=== PATIENT | female | born 1970 | race Caucasian/White ===

== ENCOUNTER 2017-07-05 07:24 | Day surgery (SDC) | payer OTHER, SELFPAY ==
[2017-07-05] VITALS (7 sets, daily range): BP systolic 96–114; BP diastolic 58–79; PULSE 62–81; RESP 16–18; TEMP 36.1–36.3; O2SAT 96–100; BMI 27.8
--- NOTE | 2017-07-05 08:30 | RAD_ITS ---
PROCEDURE: Caudal block. DATE OF EXAMINATION: July 05, 2017. INDICATION: Female, 46 years old. Chronic low back pain. FLUOROSCOPY TIME (if supplied): (0:06) minutes/seconds Intraoperative imaging provided for caudal block. RAD/Fluor Guidance for Spine Inj IMPRESSION: Intraoperative imaging provided for caudal block. Electronically Signed: Rosas Galarza MD at 10:04 EDT Tel [phone], Service support ,
[2017-07-05] MEDS: MethylPREDNISolone Acetate 80 MG/ML Vial (08:51)
[2017-07-05] MEDS: 0.9% Saline Lock 10 ML Syringe IV (08:51)
[2017-07-05] MEDS: Bupivacaine 0.25% 30 ML Vial (08:51)
--- NOTE | 2017-07-05 15:44 | PCM.OPRPT ---
Problem List (1) Radiculopathy of lumbosacral region Status: Chronic (2) Degeneration of lumbar or lumbosacral intervertebral disc Status: Chronic Report of Operation Date of Procedure: 07/05/17 Pre-Operative Diagnosis: Lumbosacral radiculopathy, lumbosacral degenerative disc disease Post-Operative Diagnosis: Lumbosacral radiculopathy, lumbosacral degenerative disc disease Surgery/Procedure Performed:: Caudal epidural steroid injection Description of Surgical Findings:: Procedure: Caudal epidural steroid injection Preoperative diagnosis: Lumbosacral radiculopathy, lumbosacral degenerative disc disease, lumbosacral spinal stenosis Postoperative diagnosis:Lumbosacral radiculopathy, lumbosacral degenerative disc disease, lumbosacral spinal stenosis Anesthesia: MAC Blood loss: Minimal Complications: None Procedure in detail: History and physical today was reviewed risk and benefits of procedure explained the patient understood and agreed to procedure informed consent was obtained IV inserted per routine protocol patient was taken to the operating room placed in the prone position with a pillow position underneath the abdomen the lower back and tailbone area was prepped and draped in a sterile fashion using iodine ?3 under direct visualization with fluoroscopy on the lateral view the caudal space was identified skin and subcutaneous tissue anesthetized approximately 3 cc of 1% lidocaine using a 25-gauge regular needle under direct visualization fluoroscopy on the lateral view using a 22-gauge 3-1/2 inch spinal needle the needle was advanced via the skin through the sacral hiatus tip of needle passed through the sacrococcygeal ligament advanced approximately S4 area after negative aspiration for blood or CSF a total of 3 cc of contrast were injected to confirm correct placement of the needle as well as cephalad spread the spread was followed to approximately L5 area after repeated confirmation AP as well as lateral view and repeated negative aspiration a total of 15 cc of preservative-free 0.125% Marcaine with 80 mg of Depo-Medrol were injected easily the needle was then removed intact patient experienced no sinus symptoms intrathecal or intravascular injection patient experienced no paresthesia the procedure was completed without any apparent difficulty any complication the patient appeared to tolerate well. Assessment and plan: This is a 46-year-old female with lumbosacral radiculopathy lumbosacral degenerative disc disease lumbosacral spinal stenosis status post caudal epidural steroid injection patient will continue her current medications patient will follow approximately 2 weeks for possible repeat of the procedure if indicated.
== END 2017-07-05 09:40 | disposition home or self-care (01) ==
LOC: SDC 07:26 → AC 07:26
PROVIDERS: Family Provider Nurse Practitioner Family; PCP Nurse Practitioner Family; Visit Provider Anesthesiology Pain Medicine
PROC: 3E0S3BZ Introduction of Anesthetic Agent into Epidural Space, Percutaneous Approach (ICD-10-PCS; CPT 62282; principal; 2017-07-05 08:25)
DX: M51.17 Intervertebral disc disorders with radiculopathy, lumbosacral region (principal); M47.27 Other spondylosis with radiculopathy, lumbosacral region; M48.07 Spinal stenosis, lumbosacral region; M79.7 Fibromyalgia; K21.9 Gastro-esophageal reflux disease without esophagitis; D64.9 Anemia, unspecified; F17.200 Nicotine dependence, unspecified, uncomplicated; Z79.891 Long term (current) use of opiate analgesic; Z79.899 Other long term (current) drug therapy
CPT/HCPCS: 62323; 64520 ×5; 64483; 77003; J7120; A4216

== ENCOUNTER 2018-02-21 08:37 | Day surgery (SDC) | payer OTHER, SELFPAY ==
[2018-02-21] VITALS (9 sets, daily range): BP systolic 87–113; BP diastolic 60–78; PULSE 62–72; RESP 14–18; TEMP 36.4–37; O2SAT 98–100; BMI 26.2
--- NOTE | 2018-02-21 10:15 | RAD_ITS ---
PROCEDURE: Caudal block. DATE OF EXAMINATION: February 21, 2018. INDICATION: Female, 47 years old. Chronic low back pain. FLUOROSCOPY TIME (if supplied): (0:14) minutes/seconds. 3 intraoperative views were obtained. Intraoperative imaging provided for caudal block. The spinal needle is seen along the posterior midportion of the sacrum. RAD/Fluor Guidance for Spine Inj IMPRESSION: Intraoperative fluoroscopic services provided for caudal block. Electronically Signed: Rosas Galarza MD at 8:54 EST Tel [phone], Service support ,
[2018-02-21] MEDS: MethylPREDNISolone Acetate 80 MG/ML Vial (10:24)
[2018-02-21] MEDS: Bupivacaine 0.25% 30 ML Vial (10:25)
--- NOTE | 2018-02-21 10:34 | OP.PCM_ITS ---
Problem List (1) Degeneration of lumbar or lumbosacral intervertebral disc Status: Chronic (2) Radiculopathy of lumbosacral region Status: Chronic Report of Operation Date of Procedure: 02/21/18 Pre-Operative Diagnosis: Lumbosacral radiculopathy, lumbosacral degenerative disc disease, lumbosacral spinal stenosis Post-Operative Diagnosis: Lumbosacral radiculopathy, lumbosacral degenerative disc disease, lumbosacral spinal stenosis Surgery/Procedure Performed:: Caudal epidural steroid injection Description of Surgical Findings:: Procedure: Caudal epidural steroid injection Preoperative diagnosis: Lumbosacral radiculopathy, lumbosacral degenerative disc disease, lumbosacral spinal stenosis Postoperative diagnosis:Lumbosacral radiculopathy, lumbosacral degenerative disc disease, lumbosacral spinal stenosis Anesthesia: MAC Blood loss: Minimal Complications: None Procedure in detail: History and physical today was reviewed risk and benefits of procedure explained the patient understood and agreed to procedure informed consent was obtained IV inserted per routine protocol patient was taken to the operating room placed in the prone position with a pillow position underneath the abdomen the lower back and tailbone area was prepped and draped in a sterile fashion using iodine ?3 under direct visualization with fluoroscopy on the lateral view the caudal space was identified skin and subcutaneous tissue anesthetized approximately 3 cc of 1% lidocaine using a 25-gauge regular needle under direct visualization fluoroscopy on the lateral view using a 22-gauge 3-1/2 inch spinal needle the needle was advanced via the skin through the sacral hiatus tip of needle passed through the sacrococcygeal ligament advanced approximately S4 area after negative aspiration for blood or CSF a total of 3 cc of contrast were injected to confirm correct placement of the needle as well as cephalad spread the spread was followed to approximately L5 area after repeated confirmation AP as well as lateral view and repeated negative aspiration a total of 15 cc of preservative- free 0.125% Marcaine with 80 mg of Depo-Medrol were injected easily the needle was then removed intact patient experienced no signs or symptoms intrathecal or intravascular injection patient experienced no paresthesia the procedure was completed without any apparent difficulty any complication the patient appeared to tolerate well. Assessment and plan: This is a 47-year-old female with lumbosacral radiculopathy lumbosacral degenerative disc disease lumbosacral spinal stenosis status post caudal epidural steroid injection patient will continue her current medications patient will follow approximately 2 weeks for possible repeat of the procedure if i ndicated.
--- OUTSIDE RECORDS SUMMARY | 2018-04-16 09:19 | XMS RPT_ITS ---
:1970 Author Organization OHIP Support Name Relationship Address Phone HOWARD AMBROSE Unavailable [id number] + [place] [address] [facility] Unavailable [address] + [facility] [place] [address] S Unavailable Unavailable Unavailable HOWARD AMBROSE Unavailable [address] Unavailable [place], [place] [id number] NOT GIVEN Unavailable Unavailable Unavailable YENI, RICKEY Unavailable [address] + [place] [address] HOWARD AMBROSE Unavailable [address] + [place] [address] [facility] Unavailable [address] + [facility] [place] [address] S Unavailable Unavailable Unavailable HOWARD AMBROSE Unavailable [address] + [place] [address] [facility] Unavailable [address] + [facility] [place] [address] S Unavailable Unavailable Unavailable HOWARD AMBROSE Unavailable [address] + [place] [address] [facility], LUISA Unavailable [address] + [place] [address] S Unavailable Unavailable Unavailable HOWARD AMBROSE Unavailable [address] Unavailable [place] [phone] NOT GIVEN Unavailable Unavailable Unavailable YENI, RICKEY Unavailable [address] + [place] [address] Care Team Providers Name Role Phone CAIT PEARCE Admitting Unavailable CAIT PEARCE Attending Unavailable CAIT PEARCE Primary Care Unavailable MINDY MENDEZ Consulting Unavailable PROVIDER, UNKNOWN Consulting Unavailable TIMBO ART Admitting Unavailable TIMBO ART Attending Unavailable TIMBO ART Primary Care Unavailable VANESSA, MINDY Consulting Unavailable VANESSA, MNIDY Referring Unavailable PROVIDER, UNKNOWN Consulting Unavailable Kemar, Juan Carlos Attending Unavailable Kemar, Juan Carlos Referring Unavailable Vanessa, Mnidy LIFE SKILLS TEACHER-C Primary Care Unavailable Kemar, Juan Carlos Attending Unavailable Kemar, Juan Carlos Referring Unavailable Vanessa, Mindy LIFE SKILLS TEACHER-C Primary Care Unavailable Kemar, Juan Carlos Attending Unavailable Kemar, Juan Carlos Referring Unavailable Vanessa, Mindy LIFE SKILLS TEACHER-C Primary Care Unavailable Kemar, Juan Carlos Attending Unavailable Vanessa, Mindy LIFE SKILLS TEACHER-C Primary Care Unavailable Kemar, Juan Carlos Referring Unavailable PROBLEMS PROBLEMS DATE TYPE CONDITION / CODE ATTENDING STATUS SOURCE 04/20/2017 Principle Soft tissue CAIT PEARCE Active Jaison Clay Diagnosis disorder, T [facility] unspecified / Hospital M799(ICD-10) Repository PROCEDURES PROCEDURES No Procedure Records FoundRESULTS RESULTS OPERATIVE REPORT Observed: 02/21/2018 Status: F Source: [place] 10:34 AM [facility] Medical Records Department [address] [place] [address] Operative Report 02/21/18 1031 MR#: [id number] Acct: [id number] Name: CHASE AMBROSE Rep #: [id number] : 1970 47 From: Juan Carlos Reinoso MD PCP: JEANETTE Grimes Status: REG [facility] Y Location: [place] [address] Problem List (1) Degeneration of lumbar or lumbosacral intervertebral disc Status: Chronic (2) Radiculopathy of lumbosacral region Status: Chronic Report of Operation Date of Procedure: 02/21/18 Pre-Operative Diagnosis: Lumbosacral radiculopathy, lumbosacral degenerative disc disease, lumbosacral spinal stenosis Post-Operative Diagnosis: Lumbosacral radiculopathy, lumbosacral degenerative disc disease, lumbosacral spinal stenosis Surgery/Procedure Performed:: Caudal epidural steroid injection Description of Surgical Findings:: Procedure: Caudal epidural steroid injection Preoperative diagnosis: Lumbosacral radiculopathy, lumbosacral degenerative disc disease, lumbosacral spinal stenosis Postoperative diagnosis:Lumbosacral radiculopathy, lumbosacral degenerative disc disease, lumbosacral spinal stenosis Anesthesia: MAC Blood loss: Minimal Complications: None Procedure in detail: History and physical today was reviewed risk and benefits of procedure explained the patient understood and agreed to procedure informed consent was obtained IV inserted per routine protocol patient was taken to the operating room placed in the prone position with a pillow position underneath the abdomen the lower back and tailbone area was prepped and draped in a sterile fashion using iodine 3 under direct visualization with fluoroscopy on the lateral view the caudal space was identified skin and subcutaneous tissue anesthetized approximately 3 cc of 1% lidocaine using a 25-gauge regular needle under direct visualization fluoroscopy on the lateral view using a 22-gauge 3-1/2 inch spinal needle the needle was advanced via the skin through the sacral hiatus tip of needle passed through the sacrococcygeal ligament advanced approximately S4 area after negative aspiration for blood or CSF a total of 3 cc of contrast were injected to confirm correct placement of the needle as well as cephalad spread the spread was followed to approximately L5 area after repeated confirmation AP as well as lateral view and repeated negative aspiration a total of 15 cc of preservative- free 0.125% Marcaine with 80 mg of Depo-Medrol were injected easily the needle was then removed intact patient experienced no signs or symptoms intrathecal or intravascular injection patient experienced no paresthesia the procedure was completed without any apparent difficulty any complication the patient appeared to tolerate well. Assessment and plan: This is a 47-year-old female with lumbosacral radiculopathy lumbosacral degenerative disc disease lumbosacral spinal stenosis status post caudal epidural steroid injection patient will continue her current medications patient will follow approximately 2 weeks for possible repeat of the procedure if indicated. 02/21/18 1034 <Electronically signed by Juan Carlos Reinoso MD> Date Juan Carlos Reinoso MD CC: JEANETTE Mendez; Juan Carlos Reinoso Signed FLUOR GUIDANCE FOR Observed: 02/21/2018 Status: F Source: [facility] SPINE INJ 3:27 AM [facility] Imaging Services [address] [place] [address] Fluor Guidance for Spine Inj MR#: [id number] Acct: [id number] Name: CHASE AMBROSE Rep #: [id number] : 1970 F 47 From: Rosas Galarza MD PCP: JEANETTE Grimes Status: [facility] Study: Fluor Guidance for Spine Inj Date of Exam: 02/21/18 Exam# [id number] Ordering Dr: Juan Carlos Reinoso MD PROCEDURE: Caudal block. DATE OF EXAMINATION: February 21, 2018. INDICATION: Female, 47 years old. Chronic low back pain. FLUOROSCOPY TIME (if supplied): (0:14) minutes/seconds. 3 intraoperative views were obtained. Intraoperative imaging provided for caudal block. The spinal needle is seen along the posterior midportion of the sacrum. RAD/Fluor Guidance for Spine Inj IMPRESSION: Intraoperative fluoroscopic services provided for caudal block. Electronically Signed: Rosas Galarza MD at 8:54 EST Tel [phone], Service support , CC: JEANETTE Mendez; Juan Carlos Reinoso Front End Ui Developer: Signed URINALYSIS Collected: 01/05/2018 Status: F Source: JAISON CLAY 1:15 AM [facility] REPOS[facility] TYPE CODE TESTS RESULT OUT OF REFERENCE UNITS RANGE LAB URINALYSIS (LOINC) URINALYSIS Result Comment: URINALYSIS LAB Specimen Type(LOINC) Specimen Type UNSPECIFIED LAB Color(LOINC) NORMAL: YELLOW Color YELLOW LAB Clarity(LOINC) NORMAL: CLEAR Clarity clear LAB ph(LOINC) NORMAL: 5.0-8.0 ph 7 LAB Protein(LOINC) NORMAL: NEGATIVE Protein NEG LAB Glucose(LOINC) NORMAL: NORMAL Glucose NORM LAB Ketone(LOINC) NORMAL: NEGATIVE Ketone NEG LAB Bilirubin(LOINC) NORMAL: NEGATIVE NEG Bilirubin LAB Blood(LOINC) NORMAL: NEGATIVE Blood 50 Abnormal LAB Urobilinog(LOINC NORMAL: ) NORMAL NORM Urobilinog LAB Sp NORMAL: [place](LOINC) 1.010-1.030 Sp 1.010 [place] LAB Nitrite(LOINC) NORMAL: NEGATIVE Nitrite NEG LAB Leukocytes(LOINC NORMAL: ) NEGATIVE NEG Leukocytes LAB Microscopic(LOIN C) SEE Microscopic BELOW Result Comment: MICROSCOPIC LAB Wbc(LOINC) 0-5/hpf Wbc 1-5 LAB Rbc(LOINC) 0-3/hpf Rbc 0-5 LAB Casts(LOINC) Casts NONE LAB Crystals(LOINC) Crystals NONE LAB Amorphous(LOINC) Amorphous NONE LAB Bacteria(LOINC) Bacteria TRACE LAB Epi Cells(LOINC) Epi Cells FEW LAB Mucous(LOINC) Mucous TRACE LAB Yeast(LOINC) Yeast NONE Performed By: #### [id number] #### [facility],[address] [place] [address] CHEST 2 VIEWS Observed: 01/05/2018 Status: F Source: [facility] 12:13 AM [place] [address] Patient: CHASE AMBROSE Phone#: : 1970 Age: 47 Gender: F Pt. Type: ER Account: [id number] Location: [facility] Ordering: TIMBO ART Exam Date: 01/04/2018/23:19 Family Phys: MINDY MENDEZ Charge Code: [id number] Physician: Simpson Order #: [id number] DLP Dose#: PROCEDURE: X-RAY CHEST 2 VIEWS COMPARISON: [facility], XR, CHEST PA/LAT, 10/24/2016, 1:37. INDICATIONS: Trauma FINDINGS: LUNGS: Normal. No significant pulmonary parenchymal abnormalities. VASCULATURE: Normal. Unremarkable pulmonary vasculature. CARDIAC: Normal. No cardiac silhouette abnormality or cardiomegaly. MEDIASTINUM: Normal. No visible mass or adenopathy. PLEURA: Normal. No effusion or pleural thickening. BONES: Normal. No fracture or visible bony lesion. OTHER: Negative. CONCLUSION: No acute disease. No significant change has occurred. Dictated by: Quita Rogers MD on 01/05/2018 at 8:08 Approved by: Quita Rogers MD on 01/05/2018 at 8:08 CT ABDOMEN/PELVIS W Observed: 01/05/2018 Status: F Source: [facility] 12:[address] [address] Patient: CHASE AMBROSE Phone#: : 1970 Age: 47 Gender: F Pt. Type: ER Account: [id number] Location: 052 Ordering: TIMBO ART Exam Date: 01/04/2018/23:33 Family Phys: MINDY MENDEZ Charge Code: [id number] Physician: Simpson Order #: [id number] DLP Dose#: 12.40 PROCEDURE: CT ABDOMEN/PELVIS WITH CONTRAST COMPARISON: [facility], CT, ABDOMEN/PELVIS W/O CON, 05/19/2013, 1:11. [facility], CT, ABDOMEN/PELVIS W/O CON, 03/06/2012, 22:32. [facility], CT, KUB W/O CON, 10/29/2011, 19:59. [facility], CT, ABDOMEN/PELVIS W/O CON, 10/24/2016, 1:58. INDICATIONS: Trauma TECHNIQUE: After obtaining the patient's consent, CT images were created with non-ionic intravenous contrast material. All CT scans at this facility use dose modulation, iterative reconstruction, and/or weight based dosing when appropriate to reduce radiation dose to as low as reasonably achievable. IV CONTRAST: Omnipaque 350,80ml TOTAL DOSE: 12.40 CTDIvol(mGy) FINDINGS: LIVER: Normal. No enlargement, atrophy, abnormal density, or significant focal lesion. BILIARY: There surgical clips in the gallbladder fossa. The gallbladder is absent. PANCREAS: Normal. No lesion, fluid collection, ductal dilatation, or atrophy. SPLEEN: Normal. No enlargement or focal lesion. KIDNEYS: The kidneys enhance and excrete contrast symmetrically. There is no hydronephrosis. ADRENALS: Normal. No mass or enlargement. AORTA/VASCULAR: Normal. No aneurysm or dissection. RETROPERITONEUM: Normal. No mass or adenopathy. Continued Report - Page 2 of 2 Patient: CHASE AMBROSE Phone#: : 1970 Age: 47 Gender: F Pt. Type: ER Account: [id number] Location: 052 Ordering: TIMBO ART Exam Date: 01/04/2018/23:33 Family Phys: MINDY MENDEZ Charge Code: [id number] Physician: Simpson Order #: [id number] DLP Dose#: 12.40 BOWEL/MESENTERY: There are surgical changes at the gastroesophageal junction. There are fluid- filled loops of small bowel without obstruction or dilatation. Coloenteric anastomosis again seen in the right lower quadrant. No significant stool burden. ABDOMINAL WALL: Normal. No mass or hernia. URINARY BLADDER: Normal. No visible focal wall thickening, lesion, or calculus. PELVIC NODES: Normal. No adenopathy. PELVIC ORGANS: The uterus is absent. BONES: Disc height loss vacuum disc phenomenon at L5-S1. LUNG BASES: Right lower lobe subpleural nodule, stable since 2011. Questionable partially imaged nodule in the right middle lobe measuring 0.4 cm. OTHER: Negative. CONCLUSION: 1. Fluid-filled loops of small bowel without dilatation or obstruction, this may be due to phase of peristalsis versus enteritis. 2. Right middle lobe pulmonary nodule partially imaged, and therefore incompletely evaluated. Consider CT thorax. Dictated by: Quita Rogers MD on 01/05/2018 at 8:53 Approved by: Quita Rogers MD on 01/05/2018 at 8:53 CBC Collected: 01/04/2018 Status: F Source: JAISON CLAY 10:16 PM [facility] REPOSITORY TYPE CODE TESTS RESULT OUT OF RANGE REFERENCE UNITS LAB CBC(LOINC) CBC Result Comment: CBC-COMPLETE BLOOD COUNT LAB WBC(LOINC) 4.5 - 10.8 x 10EE3/UL WBC High 15.8 LAB RBC(LOINC) 4.10 - x 10EE6/UL 5.30 RBC 4.67 LAB HEMOGLOBIN(LOINC 12.0 - g/dl ) 16.0 HEMOGLOBIN 14.3 LAB HEMATOCRIT(LOINC 34.0 - % ) 46.0 HEMATOCRIT 41.1 LAB MCV(LOINC) 80 - 99 fl MCV 88 LAB MCH(LOINC) 27 - 33 pg MCH 31 LAB MCHC(LOINC) 32 - 36 X10 3 MCHC 35 LAB RDW/CV(LOINC) 12.0 - % 15.6 RDW/CV 13.7 LAB PLATELET(LOINC) 150 - 450 x10EE3/UL PLATELET 214 LAB MPV(LOINC) 6.6 - 10.5 fl MPV 9.8 Result Comment: AUTOMATED DIFFERENTIAL LAB NEUT %(LOINC) 46.0 - 76.0 % NEUT % High 80.6 LAB LYMPH %(LOINC) 20.0 - 45.0 % Low LYMPH % 14.5 LAB MONOS %(LOINC) 0.0 - 10.0 % MONOS % 4.2 LAB EO %(LOINC) 0.0 - 7.0 % EO % 0.3 LAB BASO %(LOINC) 0.0 - 2.0 % BASO % 0.4 LAB Lymph #(LOINC) 0.80 - 2.80 x10EE3/U L Lymph # 2.30 LAB Neut #(LOINC) 1.50 - 7.10 x10EE3/U L Neut # High 12.70 LAB Bracken #(LOINC) 0.20 - 1.00 x10EE3/U L Bracken # 0.70 LAB EO #(LOINC) 0.00 - 0.50 x10EE3/U L EO # 0.10 LAB Baso #(LOINC) 0.00 - 0.10 x10EE3/U L Baso # 0.10 LAB MANUAL DIFF(INC) MANUAL DIFF N/A LAB MORPHOLOGY(INC ) MORPHOLOGY N/A Result Comment: {CD] Performed By: #### [id number] #### [facility],[address] [place] [address] CMP WITH EGFR Collected: 01/04/2018 Status: F Source: [facility] 10:16 PM [facility] REPOSITORY TYPE CODE TESTS RESULT OUT OF RANGE REFERENCE UNITS LAB CMP with eGFR(INC) CMP with eGFR Result Comment: COMPREHENSIVE METABOLIC PANEL LAB SODIUM(LOINC) 136 - 145 mmol/l SODIUM 140 LAB POTASSIUM(LOINC) 3.5 - 5.1 mmol/L POTASSIUM 3.7 LAB CHLORIDE(LOINC) 98 - 107 mmol/L CHLORIDE 107 LAB CO2(LOINC) 21.0 - mmol/L 31.0 CO2 25.7 LAB GLUCOSE(LOINC) 74 - 106 mg/dl GLUCOSE 97 LAB BUN(LOINC) 6 - 20 mg/dl BUN 10 LAB CREATININE(LOINC) 0.6 - 1.2 mg/dl CREATININE 0.9 LAB AST/SGOT(LOINC) 13 - 39 U/L AST/SGOT 17 LAB ALK PHOS(LOINC) 38 - 126 U/L ALK PHOS 73 LAB CALCIUM(LOINC) 8.6 - mg/dl 10.2 CALCIUM 9.3 LAB TOTAL PROTEIN(LOINC) 6.4 - 8.3 g/dl TOTAL PROTEIN 7.1 LAB ALBUMIN(LOINC) 3.4 - 4.8 g/dL ALBUMIN 4.4 LAB GLOBULIN(LOINC) 1.5 - 3.8 G/DL GLOBULIN 2.7 LAB A/G RATIO(LOINC) 0.9 - 1.6 A/G RATIO 1.6 LAB TOTAL BILI(LOINC) 0.0 - 1.5 mg/dl TOTAL BILI 0.4 LAB B/C RATIO(LOINC) 0 - 30 ratio B/C RATIO 11 LAB ALT/SGPT(LOINC) 8 - 35 U/L ALT/SGPT 17 LAB ANION GAP(LOINC) 10 - 20 mmol/L ANION GAP 11 LAB AGE(LOINC) years AGE 47 LAB eGFR(LOINC) 60 - 999 ML/MINUTE eGFR >60 LAB eGFR(AA)(LOINC) 60 - 999 ML/MINUTE eGFR(AA) >60 Result Comment: ACCORDING TO THE NATIONAL KIDNEY DISEASE EDUCATION PROGRAM(NKDE), A NORMAL eGFR IS A VALUE GREATER THAN OR EQUAL TO 60 ML/MIN/1.73 SQ METERS. CHRONIC KIDNEY DISEASE: <60mL/MIN/1.73 SQ METERS KIDNEY FAILURE: <15mL/MIN/1.73 SQ METERS THIS TEST SHOULD ONLY BE USED FOR PATIENTS 18 YEARS OF AGE AND OLDER. Performed By: #### [id number] #### [place] [address] AMYLASE Collected: 01/04/2018 Status: F Source: [facility] 10:16 PM [facility] REPOSITORY TYPE CODE TESTS RESULT OUT OF REFERENCE UNITS RANGE LAB AMYLASE(ROC 29 - 103 U/L NC) AMYLASE 39 Performed By: #### [id number] #### [place] [address] EMERGENCY REPORT Observed: 01/04/2018 Status: F Source: [facility] 9:09 PM [facility] REPOSITORY [facility] EMERGENCY ROOM REPORT NAME ACCOUNT SEX AGE ADMIT DISCHARGE PT MED. RECORD# NUMBER DATE DATE TYPE ARNOL [id number] F 47 01/04/18 01/05/18 Nando Johnson [address] ROOM: ER DATE OF : 1970 DICTATING PHYSICIAN: Timbo Art HISTORY OF PRESENT ILLNESS: This is a 47-year-old female who presents with a concern of abdominal pain after falling on a railing while painting outside. Patient states she fell approximately 3 feet from a ladder onto her abdomen while painting a porch. States that since that time she has had a dull aching pain in the center of her abdomen. Denies any nausea, vomiting, hematuria. Denies any previous abdominal surgeries. PAST MEDICAL HISTORY: None. PAST SURGICAL HISTORY: None. SOCIAL HISTORY: Patient is a current everyday smoker. Denies any drug or alcohol abuse. REVIEW OF SYSTEMS: Ten systems reviewed and otherwise negative unless stated above. PHYSICAL EXAMINATION: The patient appears well and nontoxic. Vital signs within normal limits. Head: Normocephalic without signs of trauma. Eyes: PERRLA. Equal ocular motion intact. Neck: Trachea midline, supple, no lymphadenopathy. No tenderness to palpation of the midline cervical spine. Lungs: Clear to auscultation bilaterally without wheezing or rhonchi. Heart: Regular rate and rhythm. S1, S2 appreciated without murmurs. Abdomen: Diffusely tender without signs of peritonitis. No evidence of ecchymosis. Musculoskeletal: +5/5 muscle strength in the upper and lower extremities. Lower extremities: No peripheral edema. Neurologic: Alert and oriented x3. Cranial nerves 2 through 12 intact. Psych: Mood and affect normal. DIAGNOSTIC DATA: Lab work within normal limits. No elevation in amylase or lipase. Urine shows no evidence of hematuria. CT of the abdomen and pelvis with IV contrast shows no acute abnormality. There is an incidental finding of a 5 mm pulmonary nodule. EMERGENCY DEPARTMENT COURSE AND TREATMENT: Patient appears well, nontoxic. Her vital signs are within normal limits. She does, however, have tenderness on her abdominal examination. This, along with her mechanism, she received a CT scan, which was negative. There was an incidental finding of a 5 mm pulmonary nodule, which she was made aware of and given a print out of her CT report. She will follow up with her primary care provider about this. Patient was given 50 mcg of Fentanyl and 4 Page 1 of 2 CHASE AMBROSE Emergency Room Report mg of ODT Zofran for her abdominal pain and nausea. Following a negative workup, patient will be discharged home and asked to follow up with her primary care provider. She will be given a very short course of Bullock as well as Zofran. Asked to return for any new or worsening symptoms. Patient and were both agreeable with this plan and she was discharged home in stable condition. DIAGNOSES: 1. Fall. 2. Abdominal pain. 3. Pulmonary nodule. Dictated By: Timbo Art DO 01/05/18 01:44 JOB #: [id number] Transcribed By: rangel 01/05/18 10:01 Electronically signed by: E-SIGN: Timbo Art D.O. 01/05/18 21:36 Page 2 of 2 SAADIACHASE Tejada Elizabeth Emergency Room Report OPERATIVE REPORT Observed: 07/05/2017 Status: F Source: [place] 3:45 PM [facility] Medical Records Department [address] [place] [address] Operative Report 07/05/17 1544 MR#: [id number] Acct: [id number] Name: CHASE AMBROSE Elizabeth Rep #: [id number] : 1970 46 From: Juan Carlos Reinoso MD PCP: Mindy Mendez Status: [facility] Y Location: [facility] Problem List (1) Radiculopathy of lumbosacral region Status: Chronic (2) Degeneration of lumbar or lumbosacral intervertebral disc Status: Chronic Report of Operation Date of Procedure: 07/05/17 Pre-Operative Diagnosis: Lumbosacral radiculopathy, lumbosacral degenerative disc disease Post-Operative Diagnosis: Lumbosacral radiculopathy, lumbosacral degenerative disc disease Surgery/Procedure Performed:: Caudal epidural steroid injection Description of Surgical Findings:: Procedure: Caudal epidural steroid injection Preoperative diagnosis: Lumbosacral radiculopathy, lumbosacral degenerative disc disease, lumbosacral spinal stenosis Postoperative diagnosis:Lumbosacral radiculopathy, lumbosacral degenerative disc disease, lumbosacral spinal stenosis Anesthesia: MAC Blood loss: Minimal Complications: None Procedure in detail: History and physical today was reviewed risk and benefits of procedure explained the patient understood and agreed to procedure informed consent was obtained IV inserted per routine protocol patient was taken to the operating room placed in the prone position with a pillow position underneath the abdomen the lower back and tailbone area was prepped and draped in a sterile fashion using iodine 3 under direct visualization with fluoroscopy on the lateral view the caudal space was identified skin and subcutaneous tissue anesthetized approximately 3 cc of 1% lidocaine using a 25-gauge regular needle under direct visualization fluoroscopy on the lateral view using a 22-gauge 3-1/2 inch spinal needle the needle was advanced via the skin through the sacral hiatus tip of needle passed through the sacrococcygeal ligament advanced approximately S4 area after negative aspiration for blood or CSF a total of 3 cc of contrast were injected to confirm correct placement of the needle as well as cephalad spread the spread was followed to approximately L5 area after repeated confirmation AP as well as lateral view and repeated negative aspiration a total of 15 cc of preservative- free 0.125% Marcaine with 80 mg of Depo-Medrol were injected easily the needle was then removed intact patient experienced no sinus symptoms intrathecal or intravascular injection patient experienced no paresthesia the procedure was completed without any apparent difficulty any complication the patient appeared to tolerate well. Assessment and plan: This is a 46-year-old female with lumbosacral radiculopathy lumbosacral degenerative disc disease lumbosacral spinal stenosis status post caudal epidural steroid injection patient will continue her current medications patient will follow approximately 2 weeks for possible repeat of the procedure if indicated. 07/05/17 1545 <Electronically signed by Juan Carlos Reinoso MD> Date Juan Carlos Reinoso MD CC: Mindy Reinoso Signed FLUOR GUIDANCE FOR Observed: 07/05/2017 Status: F Source: [facility] SPINE INJ 3:43 AM [facility] Imaging Services [address] [place] [address] Fluor Guidance for Spine Inj MR#: [id number] Acct: [id number] Name: CHASE AMBROSE Rep #: [id number] : 1970 F 46 From: Rosas Galarza MD PCP: Mindy Mendez Status: [facility] Study: Fluor Guidance for Spine Inj Date of Exam: 07/05/17 Exam# [id number] Ordering Dr: Juan Carlos Reinoso MD PROCEDURE: Caudal block. DATE OF EXAMINATION: July 05, 2017. INDICATION: Female, 46 years old. Chronic low back pain. FLUOROSCOPY TIME (if supplied): (0:06) minutes/seconds Intraoperative imaging provided for caudal block. RAD/Fluor Guidance for Spine Inj IMPRESSION: Intraoperative imaging provided for caudal block. Electronically Signed: Rosas Galarza MD at 10:04 EDT Tel [phone], Service support , CC: Mindy Mendez; Juan Carlos Reinoso Front End Ui Developer: Signed FINAL SURGICAL Observed: 04/19/2017 Status: F Source: [facility] PATHOLOGY REPORT 2:02 PM [facility] REPOSITORY . Pathology Reports Accession: Collected Date/Time: Received Date/Time: Pathologist: [id number] 04/19/2017 14:02 EST 04/20/2017 14:03 DO ABDULLAHI CHARLES Final Surgical Pathology Report DIAGNOSIS: A) LIPOMA, MID BACK. NEGATIVE FOR ATYPIA. B) SKIN EXCISION, RIGHT FLANK - - SEBORRHEIC KERATOSIS. COMMENT: [facility]# [id number]_ CLINICAL INFORMATION: A) SOFT TISSUE LESION B) SKIN LESION SPECIMEN: A LESION - RIGHT MID BACK B LESION - RIGHT FLANK GROSS DESCRIPTION: _A. Received in formalin labeled right mid back soft tissue lesion is a 2 x 1.6 x 1.1 cm portion of partially finely encapsulated yellow lobular adipose tissue. The specimen is inked and sectioned to show grossly unremarkable yellow fatty cut surfaces. RS -1 B. Received in formalin labeled right flank skin lesion is a 0.9 x 0.4 x 0.4 cm pale medellin friable, granular, skin shave. No orientation is given. The specimen is inked, sectioned, and entirely submitted in one cassette. Dictated by FIDE POLLOCK ([facility] MICROSCOPIC DESCRIPTION: A&B) Slides reviewed. Electronically Signed by Pathology Report verified by [facility] Electronically signed by ABDULLAHI Diaz out Date: 04/21/2017 12:34 Performing Lab: [facility], [address] [place] [address] Performed By: #### SPFR #### [place] [address] ALLERGIES ALLERGIES DATE TYPE / CODE NAME / CODE REACTION SEVERITY SOURCE 02/22/20 Drug hydrocodone Unknown Unknown [place] 18 Allergy/228730056 bitartrate/F0000 Community (SNOMED CT) [address]222(RXNORM) Hospital Repository 02/22/20 Drug propoxyphene Unknown Unknown [place] 18 Allergy/578044170 napsylate/E70396 [facility] (SNOMED CT) 1576(RXNORM) Hospital Repository 02/22/20 Drug clindamycin Unknown Unknown [place] 18 Allergy/145541642 HCl/[id number](R [facility] (SNOMED CT) XNORM) Hospital Repository 02/22/20 Drug clindamycin Unknown Unknown [place] 18 Allergy/571015665 phosphate/L99895 Community (SNOMED CT) 2796(RXNORM) Hospital Repository 02/22/20 Drug clindamycin Unknown Unknown [place] 18 Allergy/654378798 palmitate [facility] (SNOMED CT) HCl/Y471899603(R Hospital XNORM) Repository 02/22/20 Drug Penicillins/F001 Unknown Unknown [place] 18 Allergy/320829230 503474(RXNORM) [facility] (SNOMED CT) Hospital Repository 02/22/20 Drug Sulfa Unknown Unknown [place] 18 Allergy/255027920 (Sulfonamide [facility] (SNOMED CT) Antibiotics)/F00 Hospital 2555242(RXNORM) Repository 02/22/20 Drug morphine/Y958922 Unknown Unknown [place] 18 Allergy/746206463 545(RXNORM) Community (SNOMED CT) Hospital Repository 02/22/20 Drug acetaminophen/F0 Unknown Unknown [place] 18 Allergy/867297941 49019953(RXNORM) Community (SNOMED CT) Hospital Repository 02/22/20 Drug doxycycline/F006 Unknown Unknown [place] 18 Allergy/223441582 254877(RXNORM) [facility] (SNOMED CT) Hospital Repository 02/22/20 Drug latex/[id number] Unknown Unknown [place] 18 Allergy/122708604 (RXNORM) [facility] (SNOMED CT) Hospital Repository 02/22/20 Miscellaneous BEE STINGS Swelling, SHORTNESS Unknown [place] 18 Allergy/246130685 OF BREATH [facility] (SNOMED CT) Hospital Repository 02/22/20 Miscellaneous IV CONTRAST Unknown Unknown [place] 18 Allergy/767154895 [facility] ([facility]) Hospital Repository Drug PCN HIVES Moderate [place] Allergy/830063487 (penicillin)/000 ([facility] (SNOMED CT) 61179(RXNORM) Modifier) Hospital (Qualifier Repository Value) Drug SULFA RASH; CHEST Moderate [place] Allergy/885531631 (sulfonamide)/00 HEAVINESS ([facility] (SNOMED CT) 852668(RXNORM) Modifier) Hospital (Qualifier Repository Value) Drug AMOXICILLIN/0000 SOB; SWELLING Moderate [place] Allergy/293519925 0376(RXNORM) ([facility] (SNOMED CT) Modifier) Hospital (Qualifier Repository Value) Drug MORPHINE/6683287 HIVES Moderate [place] Allergy/210385626 8(RXNORM) ([facility] (SNOMED CT) Modifier) Hospital (Qualifier Repository Value) Environmental LATEX HIVES Moderate [place] Allergy/866143703 ([facility] (SNOMED CT) Modifier) Hospital (Qualifier Repository Value) Drug VICODIN/39591747 HIVES Moderate [place] Allergy/883446322 (RXNORM) ([facility] (SNOMED CT) Modifier) Hospital (Qualifier Repository Value) Drug PROPOXACET-N RASH Moderate [place] Allergy/756347124 100/32866677(RXN ([facility] (SNOMED CT) ORM) Modifier) Hospital (Qualifier Repository Value) Drug CLEOCIN/10959718 RASH Moderate [place] Allergy/659516174 (RXNORM) ([facility] (SNOMED CT) Modifier) Hospital (Qualifier Repository Value) Drug CONTRAST MEDIA, hyperventilation Moderate [place] Allergy/259099533 IODINE ([facility] ([facility]) RELATED/33305770 Modifier) Hospital (RXNORM) (Qualifier Repository Value) ENCOUNTERS ENCOUNTERS ADMIT/DISCHARGE ACCOUNT ADMITTING ENCOUNTER LOCATION SOURCE NUMBER CLASS 02/21/2018/ [id number] Ambulatory [place] 8 0 [facility] ing:SDCRoom: Repository AC04 01/04/2018/ [id number] [place], Emergency Buildin[address] [place] [address] 8 TIMBO sandersonom: ERBed: I [facility] Repository 11/08/2017 [id number] Ambulatory [place] 0 [facility] ing:[facility] Repository 10/25/2017 [id number] Ambulatory [place] 1 [facility] ing:[facility] Repository 07/05/2017/ [id number] Ambulatory [place] 8 8 [facility] ing:[facility] Repository 04/20/2017/ [id number] [facility] Repository PAYERS PAYERS ENCOUNTER GUARANTOR PAYER SUBSCRIBER SOURCE 02/21/2018 CHASE L Primary HOWARD [id number] [facility] DOBBINS Number: [id number] [id number] Repository [address]Flk: 740) Date:7023-18-09W[phone] () [id number], [place] [address]BT: 02/21/2018 Secondary NOT GIVENUNK [place] Insurance:SELF PAY [facility] Number: Effective Repository Date:2018-02-16 01/04/2018 CHASE Primary HOWARD Clay DORETICHDOB: Insurance:[facility]: [facility] [id number] [facility] [id number] Hospital [place] [address] DOBBINS Repository [facility], Number: [facility] [address]Vux: [id number] Date:Plan Name:C8 () 11/08/2017 CHASE L Primary Howard [id number] Insurance[facility] System[facility]: [facility] Dobbins Number: [id number], [place] [id number] Repository [address]Abc: 740) Date:3684-33-90[phone] () [id number], [place] [address]AR: 11/08/2017 Secondary NOT GIVENUNK [place] Insurance:SELF PAY [facility] Number: Effective Repository Date:2017-11-01 10/25/2017 CHASE L Primary Howard [id number] Insurance:CIGNAPolfloydy DoretichDOB: Community [place] Number: [id number] [id number] Repository [address]Thr: 740) Date:7316-19-60LO [phone] () [id number] DALE, [place] [address]TO: 10/25/2017 Secondary NOT GIVENUNK [place] Insurance:SELF PAY [facility] Number: Effective Repository Date:2017-09-28 07/05/2017 CHASE L Primary Howard [id number] Insurance:CIGNAPolicy DoretichDOB: [facility] Dobbins Number: [id number], [place] [id number] Repository [address]Wtg: (740) Date:7424-69-67[phone] () [id number], [place] [address]LL: 07/05/2017 Secondary NOT GIVENUNK [place] Insurance:SELF PAY [facility] Number: Effective Repository Date:2017-06-29 04/20/2017 CHASE Primary CHASE Jaison Clay DORETICHDOB: Insurance:[employer]IGNA DORETICHDOB: [facility] [id number] [facility] [id number] Hospital [facility]BBINS [facility] DOBBINS Repository [facility], Number: [facility] [id number]: [id number] Date:Plan Name:C8 ()
== END 2018-02-21 11:19 | disposition home or self-care (01) ==
LOC: SDC 08:38 → AC 08:39
PROVIDERS: Family Provider Nurse Practitioner Family; PCP Nurse Practitioner Family; Referring Provider Anesthesiology Pain Medicine; Visit Provider Anesthesiology Pain Medicine
PROC: 3E0S3BZ Introduction of Anesthetic Agent into Epidural Space, Percutaneous Approach (ICD-10-PCS; CPT 62282; principal; 2017-10-25 12:45)
DX: M51.17 Intervertebral disc disorders with radiculopathy, lumbosacral region (principal); M48.07 Spinal stenosis, lumbosacral region; M47.27 Other spondylosis with radiculopathy, lumbosacral region; D64.9 Anemia, unspecified; F17.200 Nicotine dependence, unspecified, uncomplicated; Z79.891 Long term (current) use of opiate analgesic; Z79.899 Other long term (current) drug therapy
CPT/HCPCS: 62323; 64483; 77003; J7120; J3490

== ENCOUNTER 2018-03-28 10:00 | Day surgery (SDC) | payer OTHER, SELFPAY ==
[2018-02-21 09:06] VITALS: BMI 26.2
[2018-03-28 10:19] VITALS: BP 111/78; PULSE 89; RESP 16; TEMP 37.2; O2SAT 100; BMI 26.5
--- NOTE | 2018-03-28 10:30 | RAD_ITS ---
PROCEDURE: Lumbar facet block. DATE OF EXAMINATION: March 28, 2018. INDICATION: Female, 47 years old. Chronic low back pain. FLUOROSCOPY TIME (if supplied): (0:12) minutes/seconds. 4 images were obtained. Intraoperative imaging provided for left L3-S1 facet joint block. The spinal needles are in good position. RAD/L/S Spine Min 4 Views IMPRESSION: Intraoperative imaging provided for left L3-S1 facet joint block. Electronically Signed: Rosas Galarza MD at 12:44 EST Tel [phone], Service support ,
[2018-03-28] MEDS: Bupivacaine 0.25% 30 ML Vial (10:45)
[2018-03-28] MEDS: MethylPREDNISolone Acetate 80 MG/ML Vial (10:45)
[2018-03-28 10:52] VITALS: BP 109/70; BP 111/78; PULSE 80; RESP 16; O2SAT 95
[2018-03-28 10:55] VITALS: BP 104/72; BP 111/78; PULSE 78; RESP 16; O2SAT 98
[2018-03-28 11:00] VITALS: BP 111/78; BP 117/72; PULSE 75; RESP 16; O2SAT 100
--- NOTE | 2018-03-28 11:01 | OP.PCM_ITS ---
Problem List (1) Degeneration of lumbar or lumbosacral intervertebral disc Status: Chronic (2) Lumbar facet arthropathy Status: Chronic (3) Lumbosacral spondylosis Status: Chronic Report of Operation Date of Procedure: 03/28/18 Pre-Operative Diagnosis: Lumbosacral spondylosis, lumbosacral degenerative disc disease, lumbar facet arthropathy Post-Operative Diagnosis: Lumbosacral spondylosis, lumbosacral degenerative disc disease, lumbar facet arthropathy Surgery/Procedure Performed:: Left-sided lumbar facet steroid injection L3, L4, L5, S1 Description of Surgical Findings:: PROCEDURE: Left-sided lumbar facet steroid injection L3, L4, L5, S1 PREOPERATIVE DIAGNOSIS: Lumbosacral spondylosis, lumbosacral degenerative disc disease, and lumbar facet arthropathy POSTOPERATIVE DIAGNOSIS: Lumbosacral spondylosis, lumbosacral degenerative disc disease, and lumbar facet arthropathy ANESTHESIA: MAC COMPLICATIONS: None BLOOD LOSS: Minimal PROCEDURE IN DETAIL: History and physical today was reviewed. Risks and benefits of the procedure were explained. The patient understood, agreed to our procedure, and informed consent was obtained. IV inserted per routine protocol. The patient was taken to the operating room, placed in a prone position with a pillow positioned underneath the abdomen. The left side of his lower back was prepped and draped in a sterile fashion using iodine x3. Under fluoroscopy guidance, on AP view, L3 through S1 vertebral bodies were visualized. Skin and subcutaneous tissues were anesthetized with approximately 5 mL of 1% lidocaine using a 25-gauge regular needle. Under direct visualization with fluoroscopy at approximately 25-degree angle, starting on the left L3, ending on the left S1, passing through the L4-L5 using a 22-gauge 3 1/2-inch spinal needle, the needle was advanced via the skin. The tip of the needle was maneuvered and directed towards the superior and medial gutter of the transverse process at the vicinity of the medial branch. Once the tip of the needle was in contact with the bone, the needle pulled approximately 2 mm off the bone. After negative aspiration of blood with CSF and confirmation of AP as well as oblique view, a total of 8 mL of preservative-free 0.25% Marcaine with 80 mg of Depo- Medrol was injection in divided doses between those 4 levels. The needles were then removed intact. The patient experienced no signs or symptoms intrathecal, intravascular injection. The patient experienced no paraesthesia. The procedure was completed without any apparent difficult, any complication. The patient appeared to tolerate well. ASSESSMENT AND PLAN: This is a 47-year-old Female with Lumbosacral spondylosis, lumbosacral degenera tive disc disease, and lumbar facet arthropathy, status post left-sided lumbar facet steroid injection L3 through S1. The patient will continue her current medications. The patient will follow in approximately 2 weeks for possible repeat of the procedure if indicated.
[2018-03-28 11:05] VITALS: BP 105/88; BP 111/78; PULSE 72; RESP 16; TEMP 36.6; O2SAT 100
[2018-03-28] MEDS: oxyCODONE 5 MG Tablet PO (11:30)
[2018-03-28 11:31] VITALS: BP 111/78
== END 2018-03-28 11:32 | disposition home or self-care (01) ==
LOC: SDC 10:01 → AC 10:02
PROVIDERS: Family Provider Nurse Practitioner Family; PCP Nurse Practitioner Family; Referring Provider Anesthesiology Pain Medicine; Visit Provider Anesthesiology Pain Medicine
PROC: 3E0T3BZ Introduction of Anesthetic Agent into Peripheral Nerves and Plexi, Percutaneous Approach (ICD-10-PCS; CPT 64493; principal; 2018-03-28 10:45)
DX: M47.27 Other spondylosis with radiculopathy, lumbosacral region (principal); M51.17 Intervertebral disc disorders with radiculopathy, lumbosacral region; M48.07 Spinal stenosis, lumbosacral region; D64.9 Anemia, unspecified; F17.200 Nicotine dependence, unspecified, uncomplicated; Z79.891 Long term (current) use of opiate analgesic; Z79.899 Other long term (current) drug therapy
CPT/HCPCS: 64493; 64494; 64495; 64483; 72110; J7120

== ENCOUNTER 2018-07-04 09:36 | Day surgery (SDC) | payer OTHER, SELFPAY ==
[2018-07-04 09:55] VITALS: BP 117/70; PULSE 77; RESP 16; TEMP 36.6; O2SAT 97; BMI 26.9
--- NOTE | 2018-07-04 10:50 | RAD_ITS ---
PROCEDURE: Caudal block. DATE OF EXAMINATION: July 04, 2018. INDICATION: Female, 47 years old. Low back pain. FLUOROSCOPY TIME (if supplied): (0:15) minutes/seconds. 2 intraoperative views of the sacrum were obtained. Intraoperative imaging provided for caudal block RAD/Fluor Guidance for Spine Inj IMPRESSION: Intraoperative imaging provided for caudal block. Electronically Signed: Rosas Galarza, at 11:25 EDT , Service support ,
[2018-07-04] MEDS: MethylPREDNISolone Acetate 80 MG/ML Vial (11:05)
[2018-07-04] MEDS: Bupivacaine 0.25% 30 ML Vial (11:05)
[2018-07-04 11:11] VITALS: BP 117/70; BP 99/64; PULSE 89; RESP 16; TEMP 36.8; O2SAT 92
--- NOTE | 2018-07-04 11:14 | OP.PCM_ITS ---
Problem List (1) Degeneration of lumbar or lumbosacral intervertebral disc Status: Chronic (2) Radiculopathy of lumbosacral region Status: Chronic Report of Operation Date of Procedure: 07/04/18 Pre-Operative Diagnosis: Lumbosacral radiculopathy, lumbosacral degenerative disc disease, lumbosacral spinal stenosis Post-Operative Diagnosis: Lumbosacral radiculopathy, lumbosacral degenerative disc disease, lumbosacral spinal stenosis Surgery/Procedure Performed:: Caudal epidural steroid injection Description of Surgical Findings:: PROCEDURE: Caudal epidural steroid injection PREOPERATIVE DIAGNOSIS: Lumbosacral radiculopathy, lumbosacral degenerative disc disease, lumbosacral spinal stenosis POSTOPERATIVE DIAGNOSIS: Lumbosacral radiculopathy, lumbosacral degenerative disc disease, lumbosacral spinal stenosis ANESTHESIA: MAC COMPLICATIONS: None BLOOD LOSS: Minimal PROCEDURE IN DETAIL: History and physical today was reviewed. Risks and benefits of the procedure were explained. The patient understood, agreed to our procedure, and informed consent was obtained. IV inserted per routine protocol. The patient was taken to the operati ng room, placed in a prone position with a pillow positioned underneath the abdomen. The lower back and tailbone area was prepped and draped in a sterile fashion using iodine ?3 under fluoroscopy guidance on the lateral view the caudal space was identified the skin and subcutaneous tissue and size approximately 3 cc of 1% lidocaine using a 25-gauge regular needle under direct visualization fluoroscopy using the lateral approach using a 22-gauge 3-1/2 inch spinal needle the needle was advanced via the skin through the sacral hiatus, tip of the needle passed through the sacrococcygeal ligament advanced approximately S4 area after negative aspiration for blood or CSF a total of 3 cc of contrast were injected to confirm correct placement of the needle as well as cephalad spread the spread was followed to approximately L5 area after confirmation on AP as well as lateral view and repeated negative aspiration, a total of 15 cc of preservative-free 0.125% Marcaine with 80 mg of the Depo-Medrol was injected easily. The needle was then removed intact. The patient experienced no signs or symptoms of intrathecal, intravascular injection. The patient experienced no paraesthesia. The procedure was completed without any apparent difficult, any complication. The patient appeared to tolerate well. ASSESSMENT AND PLAN: This is a 47-year-old female with lumbosacral radiculopathy, lumbosacral degenerative disc disease, lumbosacral spinal stenosis status post caudal epidural steroid injection. The patient will continue her current medications. The patient will follow in approximately 2 weeks for reevaluation.
[2018-07-04 11:15] VITALS: BP 113/62; BP 117/70; PULSE 80; RESP 16; O2SAT 100
[2018-07-04 11:20] VITALS: BP 111/73; BP 117/70; PULSE 73; RESP 16; O2SAT 100
[2018-07-04 11:25] VITALS: BP 100/80; BP 117/70; PULSE 78; RESP 18; TEMP 36.8; O2SAT 100
[2018-07-04 12:04] VITALS: BP 117/70
== END 2018-07-04 12:06 | disposition home or self-care (01) ==
LOC: SDC 09:37 → AC 09:38
PROVIDERS: Family Provider Nurse Practitioner Family; PCP Nurse Practitioner Family; Referring Provider Anesthesiology Pain Medicine; Visit Provider Anesthesiology Pain Medicine
PROC: 3E0S3BZ Introduction of Anesthetic Agent into Epidural Space, Percutaneous Approach (ICD-10-PCS; CPT 62282; principal; 2018-07-04 10:45)
DX: M51.17 Intervertebral disc disorders with radiculopathy, lumbosacral region (principal); M48.07 Spinal stenosis, lumbosacral region; M47.27 Other spondylosis with radiculopathy, lumbosacral region; F17.200 Nicotine dependence, unspecified, uncomplicated; D64.9 Anemia, unspecified; F41.9 Anxiety disorder, unspecified; Z79.891 Long term (current) use of opiate analgesic; Z79.899 Other long term (current) drug therapy
CPT/HCPCS: 62323; 64520; 64483; 77003; J7120; J3490

== ENCOUNTER 2018-08-22 07:23 | Day surgery (SDC) | payer OTHER, SELFPAY ==
[2018-08-22] VITALS (7 sets, daily range): BP systolic 88–105; BP diastolic 52–73; PULSE 72–86; RESP 14–16; TEMP 36.6; O2SAT 93–100; BMI 25.6
--- NOTE | 2018-08-22 08:00 | RAD_ITS ---
PROCEDURE: Lumbar facet block. DATE OF EXAMINATION: August 22, 2018. INDICATION: Female, 47 years old. Chronic low back pain. FLUOROSCOPY TIME (if supplied): (0:26) minutes/seconds. 4 fluoroscopic spot images were obtained. Intraoperative imaging provided for left L3-S1 facet joint block. RAD/L/S Spine Min 4 Views IMPRESSION: Fluoroscopic imaging provided for left L3-S1 facet joint block. Electronically Signed: Rosas Galarza, at 11:01 EDT , Service support ,
[2018-08-22] MEDS: Bupivacaine 0.25% 30 ML Vial (08:19)
[2018-08-22] MEDS: MethylPREDNISolone Acetate 80 MG/ML Vial (08:20)
--- NOTE | 2018-08-22 12:22 | OP.PCM_ITS ---
Problem List (1) Degeneration of lumbar or lumbosacral intervertebral disc Status: Chronic (2) Lumbar facet arthropathy Status: Chronic (3) Lumbosacral spondylosis Status: Chronic Report of Operation Date of Procedure: 08/22/18 Pre-Operative Diagnosis: Lumbosacral spondylosis, lumbosacral degenerative disc disease, lumbar facet arthropathy Post-Operative Diagnosis: Lumbosacral spondylosis, lumbosacral degenerative disc disease, lumbar facet arthropathy Surgery/Procedure Performed:: Left-sided lumbar facet steroid injection L3, L4, L5, S1 Description of Surgical Findings:: PROCEDURE: Left-sided lumbar facet steroid injection L3, L4, L5, S1 PREOPERATIVE DIAGNOSIS: Lumbosacral spondylosis, lumbosacral degenerative disc disease, and lumbar facet arthropathy POSTOPERATIVE DIAGNOSIS: Lumbosacral spondylosis, lumbosacral degenerative disc disease, and lumbar facet arthropathy ANESTHESIA: MAC COMPLICATIONS: None BLOOD LOSS: Minimal PROCEDURE IN DETAIL: History and physical today was reviewed. Risks and benefits of the procedure were explained. The patient understood, agreed to our procedure, and informed consent was obtained. IV inserted per routine protocol. The patient was taken to the operating room, placed in a prone position with a pillow positioned underneath the abdomen. The left side of the lower back was prepped and draped in a sterile fashion using iodine x3. Under fluoroscopy guidance, on AP view, L3 through S1 vertebral bodies were visualized. Skin and subcutaneous tissues were anesthetized with approximately 5 mL of 1% lidocaine using a 25-gauge regular needle. Under direct visualization with fluoroscopy at approximately 25-degree angle, starting on the left L3, ending on the left S1, passing through the L4-L5 using a 22-gauge 3 1/2-inch spinal needle, the needle was advanced via the skin. The tip of the needle was maneuvered and directed towards the superior and medial gutter of the transverse process at the vicinity of the medial branch. Once the tip of the needle was in contact with the bone, the needle pulled approximately 2 mm off the bone. After negative aspiration of blood with CSF and confirmation of AP as well as oblique view, a total of 8 mL of preservative-free 0.25% Marcaine with 80 mg of Depo- Medrol was injection in divided doses between those 4 levels. The needles were then removed intact. The patient experienced no signs or symptoms intrathecal, intravascular injection. The patient experienced no paraesthesia. The procedure was completed without any apparent difficult, any complication. The patient appeared to tolerate well. ASSESSMENT AND PLAN: This is a 47-year-old Female with lumbosacral spondylosis, lumbosacral degenerat leandro disc disease, and lumbar facet arthropathy, status post left-sided lumbar facet steroid injection L3 through S1. The patient will continue her current medications. The patient will follow in approximately 2 weeks for reevaluation.
== END 2018-08-22 09:03 | disposition home or self-care (01) ==
LOC: SDC 07:24 → AC 07:24
PROVIDERS: Family Provider Nurse Practitioner Family; PCP Nurse Practitioner Family; Referring Provider Anesthesiology Pain Medicine; Visit Provider Anesthesiology Pain Medicine
PROC: 3E0T3BZ Introduction of Anesthetic Agent into Peripheral Nerves and Plexi, Percutaneous Approach (ICD-10-PCS; CPT 64493; principal; 2018-08-22 08:05)
DX: M51.16 Intervertebral disc disorders with radiculopathy, lumbar region (principal); M48.061 Spinal stenosis, lumbar region without neurogenic claudication; M47.27 Other spondylosis with radiculopathy, lumbosacral region; M46.96 Unspecified inflammatory spondylopathy, lumbar region; M25.552 Pain in left hip; F17.200 Nicotine dependence, unspecified, uncomplicated; Z79.891 Long term (current) use of opiate analgesic
CPT/HCPCS: 64493; 64494; 64495; 64483; 72110; J7120

== ENCOUNTER 2019-01-23 08:14 | Day surgery (SDC) | payer OTHER, SELFPAY ==
[2018-08-22 07:43] VITALS: BMI 25.6
[2019-01-23 08:52] VITALS: BP 114/59; PULSE 77; RESP 16; TEMP 36.7; O2SAT 96; BMI 25.7
[2019-01-23] MEDS: Lactated Ringers 1,000 ML 100 ML IV (09:22)
--- NOTE | 2019-01-23 09:30 | RAD_ITS ---
STUDY: CAUDAL BLOCK. REASON FOR EXAM: Female, 48 years old. Chronic low back pain. FLUOROSCOPY TIME (if supplied): ( 9 seconds ) minutes/seconds. 2 images were submitted. TECHNIQUE: Intraoperative fluoroscopic services provided for caudal block. COMPARISON: None. FINDINGS: The spinal needle is seen overlying the posterior midportion of the sacrum. RAD/Fluor Guidance for Spine Inj IMPRESSION: Intraoperative imaging provided for caudal block. Electronically Signed: Rosas Galarza, at 10:00 EST , Service support ,
[2019-01-23] MEDS: MethylPREDNISolone Acetate 80 MG/ML Vial (10:07)
[2019-01-23] MEDS: Bupivacaine 0.25% 30 ML Vial (10:07)
[2019-01-23] MEDS: 0.9% Normal Saline (Pres. free 10 ML Vial (10:07)
[2019-01-23 10:15] VITALS: BP 107/71; BP 114/59; PULSE 80; RESP 16; TEMP 36.1; O2SAT 98
[2019-01-23 10:20] VITALS: BP 106/71; BP 114/59; PULSE 80; RESP 16; O2SAT 99
[2019-01-23 10:25] VITALS: BP 108/72; BP 114/59; PULSE 72; RESP 16; O2SAT 99
[2019-01-23 10:29] VITALS: BP 104/70; BP 114/59; PULSE 74; RESP 16; TEMP 36.3; O2SAT 99
--- NOTE | 2019-01-23 10:29 | OP.PCM_ITS ---
Report of Operation Date of Procedure: 01/23/19 Description of Surgical Findings:: PREOPERATIVE DIAGNOSIS: Lumbosacral radiculopathy, lumbosacral degenerative disc disease, lumbosacral spinal stenosis POSTOPERATIVE DIAGNOSIS: Lumbar sacral radiculopathy, lumbosacral degenerative disc disease, lumbosacral spinal stenosis PROCEDURE PERFORMED: Caudal epidural steroid injection. ANESTHESIA: MAC. BLOOD LOSS: Minimal. COMPLICATIONS: None. DESCRIPTION OF PROCEDURE: History and physical of today was reviewed. Risks and benefits of the procedure were explained. The patient understood and agreed to proceed. Informed consent was obtained. IV inserted per routine protocol. The patient was taken to the operating room and placed in the prone position with a pillow positioned underneath the abdomen. The lower back and tailbone area was prepped and draped in a sterile fashion using iodine x3. Under f luoroscopy guidance on a lateral view, the caudal space was identified. The skin and subcutaneous tissue was anesthetized with approximately 3 mL of 1% lidocaine using a 25-gauge regular needle. Under direct visualization with fluoroscopy, using a 22-gauge 3-1/2-inch spinal needle, the needle was advanced via the skin through the sacral hiatus. The tip of the needle was passed through the sacrococcygeal ligament and advanced to approximately S4 area. After negative aspiration of blood or CSF, a total of 3 mL of contrast was injected to confirm correct placement of the needle as well as cephalad spread. The spread was followed to approximately L5 area. After confirmation on AP as well as lateral view and repeated negative aspiration, a total of 15 mL of preservative-free 0.125% Marcaine with 80 mg of Depo-Medrol was injected easily. The needle was then removed intact. The patient experienced no sign or symptoms of intrathecal or intravascular injection. The patient experienced no paresthesia. The procedure was completed without any apparent difficulty or any complications. The patient appeared to tolerate it well. ASSESSMENT AND PLAN: This is an 48-year-old female with lumbosacral radiculopathy, lumbosacral degenerative disc disease, lumbosacral spinal stenosis status post caudal epidural steroid injection patient will continue her current medications patient found approximately 2 weeks for reevaluation.
[2019-01-23 10:45] VITALS: BP 114/59
== END 2019-01-23 10:45 | disposition home or self-care (01) ==
LOC: SDC 08:16 → AC 08:33
PROVIDERS: Family Provider Nurse Practitioner Family; PCP Nurse Practitioner Family; Referring Provider Anesthesiology Pain Medicine; Visit Provider Anesthesiology Pain Medicine
PROC: 3E0S3BZ Introduction of Anesthetic Agent into Epidural Space, Percutaneous Approach (ICD-10-PCS; CPT 62282; principal; 2019-01-23 09:25)
DX: M51.17 Intervertebral disc disorders with radiculopathy, lumbosacral region (principal); M48.07 Spinal stenosis, lumbosacral region; M47.27 Other spondylosis with radiculopathy, lumbosacral region; M79.7 Fibromyalgia; M25.552 Pain in left hip; M54.2 Cervicalgia; F17.200 Nicotine dependence, unspecified, uncomplicated; D64.9 Anemia, unspecified; Z79.891 Long term (current) use of opiate analgesic
CPT/HCPCS: 62323; 64520; 64483; 77003; J7120; J3490

== ENCOUNTER 2019-03-06 08:13 | Day surgery (SDC) | payer OTHER, SELFPAY ==
[2019-03-06] VITALS (7 sets, daily range): BP systolic 84–122; BP diastolic 61–77; PULSE 81–86; RESP 16; TEMP 36.6–37.2; O2SAT 94–99; BMI 26.1
[2019-03-06] MEDS: Lactated Ringers 1,000 ML 100 ML IV (08:46)
[2019-03-06] MEDS: MethylPREDNISolone Acetate 80 MG/ML Vial (09:17)
[2019-03-06] MEDS: Bupivacaine 0.25% 30 ML Vial (09:18)
--- NOTE | 2019-03-06 09:20 | RAD_ITS ---
PROCEDURE: Left L4-L5 and L5-S1 transforaminal block. DATE OF EXAMINATION: March 06, 2019. INDICATION: Female, 48 years old. Chronic back pain. FLUOROSCOPY TIME (if supplied): (13.1 seconds) minutes/seconds. 4 coned-down views were obtained. Intraoperative imaging provided for left L4-L5 and L5-S1 transforaminal block. RAD/Lumbar Spine 2 or 3 Views IMPRESSION: Intraoperative imaging provided for left L4-L5 and L5-S1 transforaminal block. Electronically Signed: Rosas Galarza, at 13:28 EST , Service support ,
--- NOTE | 2019-03-06 12:41 | PCM.OPRPT ---
Report of Operation Date of Procedure: 03/06/19 Description of Surgical Findings:: PREOPERATIVE DIAGNOSIS: Lumbosacral radiculopathy, lumbosacral degenerative disc disease, lumbosacral spinal stenosis POSTOPERATIVE DIAGNOSIS: Lumbosacral radiculopathy, lumbosacral degenerative disc disease, lumbosacral spinal stenosis PROCEDURE PERFORMED: Left-sided lumbar transforaminal epidural steroid injection, L4-5 and L5-S1. ANESTHESIA: MAC BLOOD LOSS: Minimal COMPLICATIONS: None DESCRIPTION OF PROCEDURE: History and physical of today was reviewed. Risks and benefits of the procedure were explained. The patient understood and agreed to proceed. Informed consent was obtained. IV inserted per routine protocol. The patient was taken to the operating room and placed in the prone position with a pillow positioned underneath the abdomen. The left side of her lower back was prepped and draped in a sterile fashion using iodine x3. Under fluoroscopy guidance on oblique view, the L4 through S1 vertebral bodies were visualized. The skin and subcutaneous tissue was anesthetized with approximately 5 mL of 1% lidocaine using a 25-gauge regular needle. Under direct visualization with fluoroscopy at approximately 35-degree angle, starting on the left L4, ending on the left L5, using a 22-gauge 5-inch spinal needle, the needle was advanced via the skin. The tip of the needle was maneuvered and directed towards the inferior and medial gutter of the transverse process at the superiormost aspect of the neural foramen. Once the tip of the needle was at the vicinity of the foramen, after negative aspiration for blood or CSF, a total of 1 mL of contrast was injected in divided doses between both levels to confirm correct placement of the needle as well as medial spread. The confirmation was obtained on AP as well as lateral view. After repeated negative aspiration and confirmation on AP as well as lateral view, a total of 6 mL of preservative-free 0.25% Marcaine with 80 mg of Depo-Medrol was injected in divided doses between both levels. The needles were then removed intact. The patient experienced no sign or symptoms of intrathecal or intravascular injection. The patient experienced no paresthesia. The procedure was completed without any apparent difficulty or any complications. The patient appeared to tolerate it well. Assessment and plan: This is a 48-year-old female with lumbosacral radiculopathy, lumbosacral degenerative disc disease, lumbosacral spinal stenosis status post left-sided lumbar transforaminal epidural steroid injection L4-5, L5-S1 patient will continue her current medications patient will follow approximately 2 weeks for reevaluation.
== END 2019-03-06 10:13 | disposition home or self-care (01) ==
LOC: SDC 08:14 → AC 08:15
PROVIDERS: Family Provider Nurse Practitioner Family; PCP Nurse Practitioner Family; Referring Provider Anesthesiology Pain Medicine; Visit Provider Anesthesiology Pain Medicine
PROC: 3E0S3BZ Introduction of Anesthetic Agent into Epidural Space, Percutaneous Approach (ICD-10-PCS; CPT 64484; principal; 2019-03-06 09:15)
DX: M51.17 Intervertebral disc disorders with radiculopathy, lumbosacral region (principal); M48.07 Spinal stenosis, lumbosacral region; M47.27 Other spondylosis with radiculopathy, lumbosacral region; M79.7 Fibromyalgia; M25.552 Pain in left hip; M54.2 Cervicalgia; F17.200 Nicotine dependence, unspecified, uncomplicated; Z79.891 Long term (current) use of opiate analgesic
CPT/HCPCS: 64484; 64483; 72100; J7120